=== PATIENT | female | born 1975 ===

== ENCOUNTER → 2023-04-05 | Day surgery (SDC) | payer OTHER ==
[2023-03-23 10:01] LABS: PH,URINE 5.5 (5.0-8.0); URINE APPEARANCE Clear; URINE BILIRRUBIN Negative (NEGATIVE); URINE BLOOD Negative; URINE COLOR Yellow; URINE GLUCOSE Negative (NEGATIVE); URINE LEUKOCYTE Negative; URINE NITRATE Negative; URINE PROTEIN Negative (NEGATIVE); URINE UROBILINOGEN 0.2 E.U./dl
[2023-03-23 10:02] LABS: URINE BACTERIA 231.7 uL (0.0-1933); URINE WBC 5.2 uL (0.0-23.2)
[2023-03-23 10:06] LABS: URINE RBC 1.7 uL (0.0-20.8)
[2023-03-23 10:25] LABS: HEMATOCRIT 42.9 % (36.0-45.00); HEMOGLOBIN 14.2 g/dL (12.0-15.00); MEAN CELL VOLUME 86.8 fL (80.00-100.00); MEAN CORPUSCULAR HEMOGLOBIN 28.8 pg (27.00-32.0); MEAN CORPUSCULAR HGB CONC 33.2 g/dl (32.0-36.0); PLATELET COUNT 209 K/uL (150-450); RED BLOOD COUNT 4.94 M/uL (4.00-6.00); RED CELL DISTRIBUTION WIDTH 14.2 % (11.5-14.5)
[2023-03-23 10:46] LABS: INR 0.96; PARTIAL THROMBOPLASTIN TIME 28.5 SECONDS (22.0-34.0); PROTHROMBIN TIME 10.1 SECONDS (9.0-11.5)
[2023-03-23 10:50] LABS: BILIRUBIN TOTAL 0.33 mg/dL (0.3-1.2); CREATININE SERUM 0.78 mg/dL (0.55-1.02); GFR 79.87
[~2023-04-05] MED LIST: LOSARTAN-HCTZ1 EAC1 PO; TROPOL
== END | disposition home or self-care (01) ==
LOC: ADM 03-23 07:45 → CIR.AMB 05:05
PROVIDERS: ATTEND Specialist
DX: K80.10 Calculus of gallbladder with chronic cholecystitis without obstruction (principal); I10 Essential (primary) hypertension; Z88.0 Allergy status to penicillin; Z91.013 Allergy to seafood; Z20.822 Contact with and (suspected) exposure to COVID-19